=== PATIENT | female | born 1950 | race Caucasian/White ===

== ENCOUNTER 2018-01-28 13:03 | Emergency (ER) | payer OTHER, MEDICAID ==
[~2018-01-28] VITALS: Ht 167.6 cm; Wt 79.8 kg
[2018-01-28] MEDS ORDERED: METFORMIN HCL500 MG PO (13:22)
[2018-01-28] MEDS ORDERED: MAGOX 400400 MG PO (13:23)
[2018-01-28] MEDS ORDERED: TOPAMAX 25 MG T25 M1 PO (13:23)
[2018-01-28] MEDS ORDERED: INDERAL40 MG PO (13:24)
[2018-01-28] MEDS ORDERED: TRAZODONE 150150 M1 PO (13:24)
[2018-01-28] MEDS ORDERED: DEPAKOTE ER500 MG PO (13:25)
[2018-01-28] MEDS ORDERED: UNICOMPLEX M TA1 TA1 PO (13:25)
[2018-01-28 13:40] LABS: ABSOLUTE BASOPHILS 0.1 thou/uL (0.0-0.2); ABSOLUTE EOSINOPHILS 0.2 thou/uL (0.0-0.7); ABSOLUTE LYMPHOCYTES 2.9 thou/uL (0.8-5.3); ABSOLUTE MONOCYTES 0.7 thou/uL (0.0-1.2); ABSOLUTE NEUTROPHILS 5.2 thou/uL (1.6-8.1); BASOPHILS 0.8 %; EOSINOPHILS 1.7 %; HEMATOCRIT 40.8 % (37.0-47.0); HEMOGLOBIN 13.8 gm/dL (12.0-15.0); MCH 32.9 pg (26.0-34.0); MCHC 33.7 g/dL (28.0-37.0); MCV 97.6 fL (80.0-100.0); MONOCYTES 8.2 %; MPV 8.8 fl. (7.2-11.1); NUCLEATED RBCS 0 /100WBC; PLATELET COUNT* 218 thou/uL (150-400); POLYS 57.3 %; RBC 4.17 mil/uL (4.20-5.00); RDW-CV 13.9 % (10.5-14.5)
[2018-01-28 13:47] LABS: CALCIUM 9.8 mg/dL (8.5-10.1); CREATININE 0.7 mg/dL (0.6-1.3); POTASSIUM 3.9 mmol/L (3.5-5.1)
[2018-01-28 13:51] LABS: ALBUMIN 3.7 g/dL (3.4-5.0); TOTAL BILIRUBIN 0.2 mg/dL (<0.1-1.0); TOTAL PROTEIN 6.7 g/dL (6.4-8.2)
[2018-01-28 15:49] VITALS: BP 136/70
== END 2018-01-28 15:53 | disposition home or self-care (01) ==
LOC: M.ERS 13:03
PROVIDERS: Nurse Practitioner Family
DX: G43.909 Migraine, unspecified, not intractable, without status migrainosus (principal); E11.9 Type 2 diabetes mellitus without complications; I10 Essential (primary) hypertension; Z86.73 Personal history of transient ischemic attack (TIA), and cerebral infarction without residual deficits

== ENCOUNTER 2018-02-21 11:55 | Emergency (ER) | payer OTHER, MEDICAID ==
[~2018-02-21] VITALS: Ht 170.2 cm; Wt 79.8 kg
[~2018-02-21 11:55] MED LIST: DEPAKOTE ER500 MG PO; INDERAL40 MG PO; MAGOX 400400 MG PO; METFORMIN HCL500 MG PO; TOPAMAX 25 MG T25 M1 PO; TRAZODONE 150150 M1 PO; UNICOMPLEX M TA1 TA1 PO
[2018-02-21] MEDS ORDERED: AMBIEN 5 MG TABL5 M1 PO (12:08)
[2018-02-21] MEDS ORDERED: ZOFRAN ODT4 MG PO (12:33)
[2018-02-21 13:19] VITALS: BP 148/61
== END 2018-02-21 13:20 | disposition home or self-care (01) ==
LOC: M.ERS 11:55
DX: G43.909 Migraine, unspecified, not intractable, without status migrainosus (principal); I10 Essential (primary) hypertension; E11.9 Type 2 diabetes mellitus without complications; Z90.49 Acquired absence of other specified parts of digestive tract

== ENCOUNTER 2020-03-16 19:11 | Emergency (ER) | payer OTHER, MEDICAID ==
[~2020-03-16] VITALS: Ht 167.6 cm; Wt 84.4 kg
[~2020-03-16 19:11] MED LIST changes: +AMBIEN 5 MG TABL5 M1 PO; +BENTYL 10 MG CA10 M1 PO; +FLEXERIL PO; +GLIPIZIDE PO; +LUNESTA2 MG PO; +METFORMIN PO; +METOPROLOL SUCC50 MG PO; +NEURONTIN 300300 M1 PO; +NORCO 5-325 TA1 EACH PO; +XANAX1 MG PO; +ZANTAC 150MG T150 MG PO; +ZOFRAN ODT4 MG PO
[2020-03-16] MEDS ORDERED: INTERMEZZO3.5 MG SUBLING (19:18)
[2020-03-16] MEDS ORDERED: DESYREL150 MG PO (19:18)
[2020-03-16] MEDS ORDERED: BUSPIRONE HCL5 MG PO (19:19)
[2020-03-16] MEDS ORDERED: XANAX1 MG PO (19:19)
[2020-03-16] MEDS ORDERED: PROCARDIA XL30 MG PO (19:19)
[2020-03-16] MEDS ORDERED: KLOR-CON 1010 MEQ PO (19:19)
[2020-03-16] MEDS ORDERED: IBUPROFEN 800800 M1 PO (20:39)
[2020-03-16] MEDS ORDERED: TYLENOL WITH CO1 TA1 PO (20:39)
[2020-03-16 21:02] VITALS: BP 124/70
== END 2020-03-16 21:03 | disposition home or self-care (01) ==
LOC: M.ERS 19:11
DX: S22.42XA Multiple fractures of ribs, left side, initial encounter for closed fracture (principal); S80.01XA Contusion of right knee, initial encounter; I10 Essential (primary) hypertension; E11.9 Type 2 diabetes mellitus without complications; G43.909 Migraine, unspecified, not intractable, without status migrainosus; F17.210 Nicotine dependence, cigarettes, uncomplicated; Z90.49 Acquired absence of other specified parts of digestive tract; W01.0XXA Fall on same level from slipping, tripping and stumbling without subsequent striking against object, initial encounter; Y93.89 Activity, other specified; Y92.89 Other specified places as the place of occurrence of the external cause; Y99.8 Other external cause status